=== PATIENT | female | born 1935 ===

== ENCOUNTER 2019-12-08 11:42 | Inpatient (IN) | payer OTHER ==
[~2019-12-08] VITALS: Ht 154.9 cm; Wt 49.9 kg
[2019-12-08] MEDS ORDERED: LEVOTHYROXINE25 MCG PO (11:51)
[2019-12-08] MEDS ORDERED: COZAAR25 MG PO (11:52)
[2019-12-08] MEDS ORDERED: ARICEPT10 MG PO (11:52)
[2019-12-08] MEDS ORDERED: LIPITOR40 M1 PO (11:53)
[2019-12-13] MEDS ORDERED: INTESTINEX680 M1 PO (15:11)
[2019-12-13] MEDS ORDERED: POLY119PG PO (15:11)
[2019-12-13] MEDS ORDERED: ARICEPT10 MG PO (15:11)
[2019-12-13] MEDS ORDERED: LIPITOR40 M1 PO (15:11)
[2019-12-13] MEDS ORDERED: LEVOTHYROXINE100 MCG PO (15:11)
[2019-12-13] MEDS ORDERED: SEROQUEL25 MG PO (15:11)
[2019-12-13] MEDS ORDERED: LOSARTAN POTAS100 MG PO (15:11)
== END 2019-12-13 16:11 | disposition home health service (06) | DRG 390 ==
LOC: ER 11:42 → SURH 19:52
PROVIDERS: ADMIT Internal Medicine Geriatric Medicine; ATTEND Internal Medicine Geriatric Medicine
PROC: 02HV33Z Insertion of Infusion Device into Superior Vena Cava, Percutaneous Approach (ICD-10-PCS; principal; 2019-12-09)
DX: K56.41 Fecal impaction (principal); G30.9 Alzheimer's disease, unspecified; F02.80 Dementia in other diseases classified elsewhere, unspecified severity, without behavioral disturbance, psychotic disturbance, mood disturbance, and anxiety; E03.9 Hypothyroidism, unspecified; E86.0 Dehydration; K62.89 Other specified diseases of anus and rectum; E78.5 Hyperlipidemia, unspecified; E87.6 Hypokalemia; D35.01 Benign neoplasm of right adrenal gland; R13.19 Other dysphagia; I11.9 Hypertensive heart disease without heart failure